=== PATIENT | male | born 1940 | race Two or more races ===

== ENCOUNTER 2024-11-20 20:51 | Inpatient (IN) | payer MEDICARE, OTHER ==
[~2024-11-20] VITALS: Ht 167.6 cm; Wt 108.9 kg
[2024-11-20 21:35] LABS: PLATELET COUNT (AUTO) 204 K/uL (150-450); RED BLOOD CELL COUNT(AUTO) 4.54 MIL/uL (4.5-6.0); RED CELL DISTRIBUTION WIDTH 14.1 % (11.5-15.0); WHITE BLOOD COUNT (AUTO) 6.7 K/uL (4.3-11.0)
[2024-11-20 21:49] LABS: CALCIUM, SERUM 9.5 mg/dL (8.5-10.1); CREATININE 2.9 mg/dL (0.6-1.3); SODIUM SERUM 138 mmol/L (136-145); UREA NITROGEN, BLOOD 47 mg/dL (7-18)
[2024-11-20 21:57] LABS: ASPARTATE AMINOTRANSFERASE 21 U/L (15-37); TOTAL PROTEIN, SERUM 7.9 g/dL (6.4-8.2)
[2024-11-20 23:21] LABS: APPEARANCE,URINE CLEAR (CLEAR); BLOOD, URINE NEGATIVE Ery/uL (NEGATIVE); LEUKOCYTE ESTERASE ,URINE NEGATIVE (NEGATIVE); NITRITE, URINE NEGATIVE (NEGATIVE); UGLUCOSE TRACE mg/dL (NEGATIVE)
[2024-11-20 23:30] LABS: AMPHETAMINE, URINE NEGATIVE (NEGATIVE); BARBITURATE, URINE NEGATIVE (NEGATIVE); BENZODIAZEPINE, URINE NEGATIVE (NEGATIVE); CANNABINOID, URINE NEGATIVE (NEGATIVE); COCCAINE, URINE NEGATIVE (NEGATIVE)
[2024-11-20 23:31] LABS: OPIATE, URINE POSITIVE (NEGATIVE)
[2024-11-21 03:10] VITALS: O2SAT 97
[2024-11-21] MEDS ORDERED: ACETAMINOPHEN 325 MG TABLET PO PRN (04:00)
[2024-11-21] MEDS ORDERED: MAGNESIUM HYDROXIDE 30 ML UDC PO PRN (04:00)
[2024-11-21] MEDS ORDERED: TEMAZEPAM 7.5 MG CAPSULE PO PRN (04:00)
[2024-11-21] MEDS ORDERED: MAG HYDROX/AL HYDROX/SIMETH 30 ML UDC PO PRN (04:00)
[2024-11-21] MEDS ORDERED: LORAZEPAM 0.5 MG TABLET PO PRN ×2 (04:00)
[2024-11-21] MEDS: BLOOD SUGAR DIAGNOSTIC 1 EACH STRIP IN ONE (04:17)
[2024-11-21 04:49] VITALS: BP 155/81; TEMP 97.8
[2024-11-21 08:00] VITALS: BP 146/109; TEMP 97.8; O2SAT 98
[2024-11-21] MEDS ORDERED: LEVO75TA99 PO (08:52)
[2024-11-21] MEDS ORDERED: TAMS-12 PO (08:52)
[2024-11-21] MEDS ORDERED: QUET100T PO (08:52)
[2024-11-21] MEDS ORDERED: FURO40TA5 PO (08:52)
[2024-11-21] MEDS ORDERED: ACET1TAB23 PO (08:52)
[2024-11-21] MEDS ORDERED: METH4TAB16 PO (08:52)
[2024-11-21] MEDS ORDERED: methylPREDNISolone DOSPAK(4MG) 1 PACK TAB.DS.PK PO SCH (12:30)
[2024-11-21] MEDS ORDERED: ACETAMINOPHEN W/ CODEINE#3 1 EA TABLET PO PRN (12:30)
[2024-11-21 16:00] VITALS: BP 155/68; TEMP 97.8; O2SAT 98
[2024-11-21] MEDS ORDERED: DIVALPROEX SODIUM 125 MG CAP.SPRINK PO SCH (17:00)
[2024-11-21] MEDS ORDERED: IV NS 0.9% 1,000 ML IV ONE (17:30)
[2024-11-21] MEDS ORDERED: QUETIAPINE FUMARATE 25 MG TABLET PO SCH (22:00)
[2024-11-22] MEDS ORDERED: LEVOTHYROXINE SODIUM 75 MCG TABLET PO SCH (07:30)
[2024-11-22] MEDS ORDERED: TAMSULOSIN 0.4 MG CAP.SR.24H PO SCH (09:00)
[2024-11-22] MEDS ORDERED: QUETIAPINE FUMARATE 25 MG TABLET PO SCH (09:00)
== END 2024-11-21 17:30 | disposition home or self-care (01) | DRG 885 ==
LOC: ER 20:53 → GPS 11-21 02:25
PROVIDERS: ADMIT Psychiatry & Neurology Psychosomatic Medicine; ATTEND Student in an Organized Health Care Education/Training Program
DX: F29 Unspecified psychosis not due to a substance or known physiological condition (principal); N18.9 Chronic kidney disease, unspecified; N17.9 Acute kidney failure, unspecified; E03.9 Hypothyroidism, unspecified; Z20.822 Contact with and (suspected) exposure to COVID-19; F03.90 Unspecified dementia, unspecified severity, without behavioral disturbance, psychotic disturbance, mood disturbance, and anxiety; M89.8X9 Other specified disorders of bone, unspecified site; I50.9 Heart failure, unspecified; N40.0 Benign prostatic hyperplasia without lower urinary tract symptoms; Z73.6 Limitation of activities due to disability; Z85.528 Personal history of other malignant neoplasm of kidney; Z90.5 Acquired absence of kidney
CPT/HCPCS: 36415; 80048-TC; 80076-TC; 82962-TC; 85025-TC; 97116-TC; 97530-TC; J7030